=== PATIENT | female | born 1935 | race Caucasian/White ===

== ENCOUNTER 2024-05-19 10:53 | Outpatient (AMB) | payer MEDICARE, SELFPAY ==
--- NOTE | 2024-05-19 10:56 | A.OFFVIS_ITS ---
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 She describes her pains as sharp and severe in nature. She has had cortisone injections in the past which gave her minimal relief. She has not had a viscosupplementation injection. She has failed the last 3 months of conservative treatment which has included Tylenol, anti- inflammatory medicines and physical therapy exercises. At this point her bilateral knee pains are interfering with her activities of daily living and her ability to sleep well through the night. The patient wishes to hold off on total knee replacement surgery for as long as possible. Allergies lavander Allergy (Severe, Uncoded 05/19/24 11:11) Hives Medication List - Last Reviewed 05/19/24 by EMILIANA Malagon amlodipine 5 mg PO DAILY estradiol 1 mg PO DAILY hydrochlorothiazide 25 mg PO DAILY losartan 100 mg PO DAILY rosuvastatin 40 mg PO DAILY Physical Exam Vital Signs: BMI result Body Mass Index 34.5 Const Other: Well-nourished well-developed very friendly female awake alert and oriented x3 in no acute distress Extrem Other: Bilateral lower extremity examination shows good capillary refill, no skin lesions noted, normal sensation light touch Bilateral knee examination shows minimal effusions, palpable crepitus with range of motion, pain with range of motion, no instability Office Procedures AMB Joint Injection/Aspiration Joint Injection/Aspiration Primary Site: left knee Prep: site was prepped using aseptic technique Injected: 40 mg of, DepoMedrol and 1% plain lidocaine Procedure: The patient tolerated the procedure well Coding 07575 - Large joint Procedure code (CPT) selection complete AMB Joint Injection/Aspiration Joint Injection/Aspiration Primary Site: right knee Prep: site was prepped using aseptic technique Injected: 40 mg of, DepoMedrol and 1% plain lidocaine Procedure: The patient tolerated the procedure well Coding 31513 - Large joint Procedure code (CPT) selection complete Results Reviewed Results Reviewed: X-rays of the patient's right knee show moderate to severe joint space narrowing, subchondral sclerosis, no acute bony abnormalities Assessment & Plan Assessment & Plan (1) Osteoarthritis of left knee: Code(s): M17.12 - Unilateral primary osteoarthritis, left knee Category: Medical (2) Osteoarthritis of right knee: Code(s): M17.11 - Unilateral primary osteoarthritis, right knee Category: Medical Plan Ms. Campbell presents with progressively worsening bilateral knee pains due to osteoarthritis. I had a lengthy discussion with the patient regarding the treatment options. The risks and benefits of bilateral knee cortisone injections were discussed at length with the patient. The patient wished to proceed. She tolerated the injections well. I will also see whether or not the patient's insurance company will cover a viscosupplementation injection, such as Durolane, for both of her knees. I will see her back once the injections are available. Feel free to call me at any time should questions regarding her orthopedic management arise. I spent 22 minutes in reviewing the patient's records and imaging studies, seeing the patient and documenting in the medical record. Orders: Orders AMB Joint Injection/Aspiration Today M17.12 - Unilateral primary osteoarthritis, left knee XR knee RT 3V Today M25.561 - Pain in right knee AMB Joint Injection/Aspiration Today M17.11 - Unilateral primary osteoarthritis, right knee Coding Level of Care Code Est Pt Level 3 (34075) Complex EM visit Add On G2211 Diagnoses Osteoarthritis of left knee M17.12 Osteoarthritis of right knee M17.11 CPT Codes Coding - 39900 Large joint: 32317 - Large joint ([id number]) Coding - 93784 Large joint: 53887 - Large joint ([id number])
[2024-05-19 11:10] VITALS: BMI 34.5
== END 2024-05-19 11:32 | disposition home or self-care (01) ==
PROVIDERS: PCP Internal Medicine; Visit Provider Orthopaedic Surgery
DX: M17.0 Bilateral primary osteoarthritis of knee (principal)
CPT/HCPCS: 20610; 99213; G2211

== ENCOUNTER 2024-05-19 12:50 | Outpatient (REF) | payer MEDICARE, SELFPAY ==
--- NOTE | ~2024-05-19 | XR_ITS ---
EXAMINATION: XR KNEE 3 VIEWS RIGHT HISTORY: M25.561 - Pain in right knee COMPARISON: There are no prior studies available for comparison. FINDINGS: Three views of the left knee are submitted. Osseous mineralization is normal. There is no fracture or dislocation. There is severe osteoarthritis of the medial and lateral compartments, and moderate osteoarthritis of the patellofemoral compartment, with joint space narrowing and osteophyte formation. There is no joint effusion. There is calcification of the popliteal artery. XR/XR knee RT 3V IMPRESSION: Osteoarthritis of the right knee as described. Electronically signed by: Syed Keenan MD 05/20/2024 02:13 PM [facility]
== END 2024-05-19 12:51 | disposition home or self-care (01) ==
LOC: HO.HOSX 12:50
PROVIDERS: Visit Provider Orthopaedic Surgery
DX: M25.561 Pain in right knee (principal); M17.0 Bilateral primary osteoarthritis of knee
CPT/HCPCS: 20610; 73562; 99212; J1010; J2003

== ENCOUNTER 2024-08-18 11:27 | Outpatient (AMB) | payer MEDICARE, SELFPAY ==
[2024-08-18 11:42] VITALS: BMI 34.5
--- NOTE | 2024-08-18 11:42 | MHC.OFFVIS ---
Vital Signs 08/18/24 11:42 Height 5 ft 3.5 in Weight 198 lb BMI 34.5 Intake Visit Reasons: Bilateral knee pains Intake Note: Tiffani is an 89 year old female who presents with complaints of progressively worsening bilateral knee pains. She describes her pains as sharp in nature. Her pains have gotten worse over the last 6 months in spite of continued non operative treatments. She has failed the last 3 months of conservative treatment which has included Tylenol, anti-inflammatory medicines, physical therapy exercises and a home exercise program. She has had cortisone injections in the past which gave her minimal relief. She wishes to hold off on surgery if at all possible. At this point her bilateral knee pains are interfering with her activities of daily living and her ability to sleep well through the night. Allergies lavander Allergy (Severe, Uncoded 08/18/24 11:42) Hives Medication List - Last Reconciled 08/18/24 by Shayan Busch MD amlodipine 5 mg PO DAILY amoxicillin 2,000 mg (4 x 500 mg) PO ONCE estradiol 1 mg PO DAILY hydrochlorothiazide 25 mg PO DAILY losartan 100 mg PO DAILY rosuvastatin 40 mg PO DAILY Physical Exam Vital Signs: BMI result Body Mass Index 34.5 Const Other: Well-nourished well-developed very friendly female awake alert and oriented x3 in no acute distress Extrem Other: Bilateral lower extremity examination shows good capillary refill, no skin lesions noted, normal sensation light touch Bilateral knee examination shows minimal effusions, palpable crepitus with range of motion, pain with range of motion, no instability Office Procedures AMB Joint Injection/Aspiration Joint Injection/Aspiration Primary Site: right knee Prep: site was prepped using aseptic technique Injected: 20 mg of (Euflexxa viscosupplementation) and 1% plain lidocaine Procedure: The patient tolerated the procedure well Coding 18338 - Large joint Procedure code (CPT) selection complete AMB Joint Injection/Aspiration Joint Injection/Aspiration Primary Site: left knee Prep: site was prepped using aseptic technique Injected: 20 mg of (Euflexxa viscosupplementation) and 1% plain lidocaine Procedure: The patient tolerated the procedure well Coding 68148 - Large joint Procedure code (CPT) selection complete Results Reviewed Results Reviewed: X-rays of the patient's bilateral knees taken previously show joint space narrowing, subchondral sclerosis, no acute bony abnormalities Assessment & Plan Assessment & Plan (1) Osteoarthritis of left knee: Code(s): M17.12 - Unilateral primary osteoarthritis, left knee Category: Medical (2) Osteoarthritis of right knee: Code(s): M17.11 - Unilateral primary osteoarthritis, right knee Category: Medical Plan Ms. Campbell presents with bilateral knee pains due to osteoarthritis. The risks and benefits of a series of Euflexxa viscosupplementation injections were discussed at length with the patient. The patient wished to proceed. She tolerated the 1st set of injections well. She will continue with her home exercise program. She will follow up next week as scheduled. Feel free to call me at any time should questions regarding her orthopedic management arise. I spent 20 minutes in reviewing the patient's records and imaging studies, seeing the patient and documenting in the medical record. Orders: Orders AMB Joint Injection/Aspiration Today M17.11 - Unilateral primary osteoarthritis, right knee AMB Joint Injection/Aspiration Today M17.12 - Unilateral primary osteoarthritis, left knee Medications: New amoxicillin Take four caps (2,000 mg) one hour before any dental work. 2,000 mg (4 x 500 mg) PO ONCE 20 caps 3RF Coding Level of Care Code Est Pt Level 3 (55688) Complex EM visit Add On G2211 Diagnoses Osteoarthritis of left knee M17.12 Osteoarthritis of right knee M17.11 CPT Codes Coding - 10057 Large joint: 89979 - Large joint ([id number]) Coding - 48360 Large joint: 58510 - Large joint ([id number])
--- OUTSIDE RECORDS SUMMARY | 2024-08-18 13:55 | XMS_ITS | Clinical Summary ---
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 8 Active estradioL (ESTRACE) 1 mg tablet Take 1 mg by mouth daily. 4 Active fluticasone propionate (FLONASE) 50 mcg/actuation nasal spray 2 Sprays by Each Nare route daily for 360 days. 3 Active vitamin E, dl,tocopheryl acet, (vitamin E, dl, acetate,) 45 mg (100 unit) capsule Take 1 Capsule by mouth daily. 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 She understands all this and agrees with that plan as well. We can always follow this along with her nodule in the lung. Pulmonary nodules/lesions, multiple 10/21/2022 Overview (03/10/2024): Last Assessment & Plan: 89-year-old woman with pulmonary nodule in the right upper lobe that is actually stable but still somewhat suspicious. I did have a discussion with her and her son about the findings on the CAT scan showing this nodules again to be stable. We also talked about pulmonary nodules in general how their size, shape, and change/lack of knife changer time affect her level of suspicion for malignancy. I think this is of moderate suspicion based on all of this and the options I discussed with her were continued observation versus needle biopsy versus surgical wedge resection possible segmentectomy. Understanding the risks of this she wants to proceed with continued observation which I think is totally reasonable given her age and other comorbidities. Plan then from that standpoint will be for a CT chest in a year and follow-up with me after that. All questions were answered. Ectatic aorta (CMS/HCC V24) 08/07/2022 Overview (03/10/2024): CT 08/25 revealed 3.7 cm Prediabetes 01/12/2021 Overview (03/10/2024): A1c 6.0% 01/2021 Primary osteoarthritis of right knee 08/10/2020 CAD (coronary artery disease) 11/20/2017 Overview (03/10/2024): Comments: CXR 04/09/13 Aortic knob calcification Echo with nl EF, mild LVH 01/2020 HTN (hypertension) 11/28/2011 Anxiety 11/22/2011 Osteopenia 11/22/2011 Overview (03/10/2024): Bone density - 5/5/11 - right femoral neck T score -1.7 Bone density 04/22 - osteopenia Vitamin D deficiency 11/22/2011 Hyperlipidemia 11/20/2011 Overview (03/10/2024): Had been on pravastatin then on Lipitor Osteoarthritis 09/17/2011 Immunizations Name Administration Dates Next Due Tdap Tetanus diptheria acell ular pertussis (Boostrix; Adacel) 7yo and older 05/01/2022,03/21/2011 Surgical History Surgery Date Site/Laterality Comments HYSTERECTOMY PROCEDURE: HISTORICAL HYSTERECTOMY CATARACT EXTRACTION PROCEDURE: HISTORICAL CATARACT REMOVAL HIP ARTHROPLASTY PROCEDURE: HISTORICAL HIP REPLACEMENT OTHER SURGICAL HISTORY PROCEDURE: HISTORY OTHER; COMMENT: Abdomino-vaginal vesical neck suspension FOOT SURGERY PROCEDURE: UT UNLISTED PROCEDURE FOOT/TOES; COMMENT: hammartoe repair Medical History Medical History Date Comments Gout 11/22/2011 DX:Gout Anxiety 11/22/2011 DX:Anxiety Osteopenia 11/22/2011 DX:Osteopenia Hyperlipidemia 11/20/2011 DX:Hyperlipidemi a; COMMENT: Had been on pravastatin then on Lipitor HTN (hypertension) 11/28/2011 DX:HTN (hyper tension) CAD (coronary artery disease) 11/20/2017 DX :CAD (coronary artery disease); COMMENT: Comments: CXR 04/09/13 Aortic knob calcification Osteoarthritis 09/17/2011 DX:Osteoarthriti s History of Lyme disease 10/06/2010 DX:Histo ry of Lyme disease; COMMENT: IgG positive, IgM negative History of cataract 11/22/2011 DX:History o f cataract Family History Medical History Relation Name Comments Bladder Cancer Brother 1 Heart failure Brother 2 diabetes, No Known Problems Brother 3 No Known Problems Brother 4 Other: infectious disease Father Colon cancer Maternal Grandfather Liver cancer Maternal Grandmother Colon cancer Mother Other: in childbirth Paternal Grandmother Other: car accident Sister 1 Heart failure Sister 2 diabetes Breast cancer Sister 3 CHF Relation Name Status Comments Brother 1 Brother 2 Brother 3 Alive Brother 4 Alive Father Maternal Grandfather Maternal Grandmother Mother Paternal Grandfather Paternal Grandmother Sister 1 Sister 2 Sister 3 Alive Social History Tobacco Use Types Packs/Day Years Used Date Smoking Tobacco: Former Cigarettes 1.5 53 0 [birth year]/05/1954 - 05/05/2007 Smokeless Tobacco: Never Tobacco Cessation:Counseling Given: Not Answered Alcohol Use Standard Drinks/Week Comments Yes 0 (1 standard drink = 0.6 oz pur e alcohol) Comments No Sex and Gender Information Value Date Recorded Sex Assigned at Not on file Legal Sex Female 9:38 AM EST Gender Identity Not on file Sexual Orientation Not on file Obstetrics History Last Filed Vital Signs Vital Sign Reading Time Taken Comments Blood Pressure 136/78 04/14/2024 10:45 AM EST Pulse 84 01/26/2024 10:24 AM EDT Temperature - - Respiratory Rate 16 04/14/2024 10:45 AM EST Oxygen Saturation - - Inhaled Oxygen Concentration - - Weight 89.9 kg (198 lb 1.6 oz) 04/14/2024 10:45 AM EST Height 160 cm (5' 3 ) 01/26/2024 10:24 AM EDT Body Mass Index 35.09 01/26/2024 10:24 AM EDT Plan of Treatment Upcoming Encounters Date Type Department Care Team (Late st Contact Info) Description 10/13/2024 10:45 AM EDT [facility] [address] [place] [phone] Edison Escobedo PA [address] [place] [address] Health Maintenance Due Date Last Done Comments Pneumococcal Vaccine: 50+ Years (1 of 1 - PCV) 1987 Zoster Vaccines (1 of 2) 1987 RSV Immunization Adult Patients (1 - 1-dose 75+ series) 01/21/2012 Depression Screening 04/13/2022 Falls Risk Assessment 04/13/2022 Medicare Annual Wellness Visit 04/13/2022 Social Influencers of Health Screening 04/13/2022 COVID-19 Vaccine (4 - 2023-2 5 season) 2024 05/23/2021, 09/26/2020, 08/29/2020 Influenza Vaccine (Season Ended) 2025 Hypertension/CHF/CAD Annual BMP Blood Test 04/14/2025 04/14/2024, 04/16/2023 Cholesterol Screening (Lipid Panel) 04/16/2028 04/16/2023 DTaP,Tdap,and Td Vaccines (3 - Td or Tdap) 05/01/2032 05/01/2022, 03/21/2011 Osteoporosis Screening (Bone Density Screening) 08/22/2032 08/22/2022, 04/23/2019 HIB Vaccines Aged Out No longer eligi ble based on patient's age to complete this topic HPV Vaccines Aged Out No longer eligi ble based on patient's age to complete this topic Hepatitis A Vaccines Aged Out No long er eligible based on patient's age to complete this topic Hepatitis B Vaccines Aged Out No long er eligible based on patient's age to complete this topic IPV Vaccines Aged Out No longer eligi ble based on patient's age to complete this topic MMR Vaccines Aged Out No longer eligi ble based on patient's age to complete this topic Meningococcal ACWY Vaccine Aged Out N o longer eligible based on patient's age to complete this topic Meningococcal B Vaccine Aged Out No l onger eligible based on patient's age to complete this topic RSV Immunization Patients Under 20 months Aged Out No longer eligible b ased on patient's age to complete this topic Varicella Vaccines Aged Out No longer eligible based on patient's age to complete this topic Procedures Procedure Name Priority Date/Time Associated Diagnosis Comments COMPREHENSIVE METABOLIC PANEL Routine 04/14/2024 11:13 AM EST Mixed hyperlipidemia Primary hypertension LIPID PANEL Routine 04/16/2023 [facility] DEXA AXIAL SKELETON Routine 08/22/2022 7:38 AM EDT Encounter for screening for osteoporosis from Last 3 Months or Most Recently Relevant to Health Maintenance Results * (ABNORMAL) Comprehensive metabolic panel (04/14/2024 11:13 AM EST) Sodium 144 133 - 145 mmol/L LAB CHEMISTRY METHOD 04/14/2024 3:48 PM EST [facility] Potassium 4.2 3.5 - 5.5 mmol/L LAB CHEMISTRY METHOD 04/14/2024 3:48 PM EST [facility] Chloride 109 96 - 110 mmol/L LAB CHEMISTRY METHOD 04/14/2024 3:48 PM [facility] CO2 28 21 - 32 mmol/L LAB CHEMISTRY METHOD 04/14/2024 3:48 PM [facility] Anion Gap 7 3 - 11 LAB CHEMISTRY METHOD 04/14/2024 3:48 PM [facility] Glucose 104(H) 70 - 100 mg/dL LAB CHEMISTRY METHOD 04/14/2024 3:48 PM [facility] BUN 24 5 - 25 mg/dL LAB CHEMISTRY METHOD 04/14/2024 3:48 PM [facility] Creatinine 0.99 0.50 - 1.10 mg/dL LAB CHEMISTRY METHOD 04/14/2024 3:48 PM [facility] eGFR 55(L) >=60 mL/min/1. 73m2 LAB CHEMISTRY METHOD 04/14/2024 3:48 PM [facility] Comment:Calculation based on the??Chronic Kidney Disease Epidemiology Collaboration (CKD-EPI) equation refit??without adjustment for race. BUN/Creatinine Ratio 24.2 LAB CHEMISTRY METHOD 04/14/2024 3:48 PM [facility] Calcium 10.0 8.5 - 10.5 mg/dL LAB CHEMISTRY METHOD 04/14/2024 3:48 PM [facility] AST (SGOT) 12 10 - 42 unit/L LAB CHEMISTRY METHOD 04/14/2024 3:48 PM [facility] ALT (SGPT) 16 10 - 60 unit/L LAB CHEMISTRY METHOD 04/14/2024 3:48 PM [facility] Alkaline Phosphatase 48 42 - 121 unit/L LAB CHEMISTRY METHOD 04/14/2024 3:48 PM [facility] Total Protein 6.9 6.0 - 8.0 g/dL LAB CHEMISTRY METHOD 04/14/2024 3:48 PM [facility] Albumin 3.8 3.2 - 5.0 g/dL LAB CHEMISTRY METHOD 04/14/2024 3:48 PM EST [facility] Total Bilirubin 0.5 0.0 - 1.4 mg/dL LAB CHEMISTRY METHOD 04/14/2024 3:48 PM EST [facility] Blood Venous blood specimen / Unknown Venipuncture / Unknown 04/14/2024 11:13 AM EST 04/14/2024 11:13 AM EST Edison STACK LAB BLOOD ORDERABLES Fi nal Result [facility] [address] [place] [address], * (ABNORMAL) Lipid panel (04/16/2023) LDL/HDL Ratio 3 0 - 4 Triglycerides 126 0 - 150 mg/dL Cholesterol 217(A) 0 - 200 mg/dL HDL 75 >=40 mg/dL LDL Cholesterol 117(A) 0 - 100 mg/dL Blood Venous blood specimen / Unknown Historical Provider MD LAB BLOOD ORDERABLES Mary l Result * IS[facility]EL DEXA AXIAL SKELETON (08/22/2022 7:38 AM EDT) Anatomical Region Laterality Modality Mammography 08/21/2022 11:0 3 AM EDT Narrative 08/22/2022 7:38 AM EDT [facility] Diagnostic Imaging Department [address], [place] [id number] Patient: ??RIGOBERTO CAMPBELL ?/Age/Sex: 1935 - 87 - F Unit#: ??[id number] ? Location/Status: ??SPDIMAM/REG CLI ? Mnemonic/Ordering Site: ??MAMDEXAAX/SPMAM Ordering Physician: ??MAYI JESUS MD [facility] Dexa Axial Skeleton - 08/21/22 - 1140 HISTORY: ??The patient is an 87-year-old postmenopausal female with clinical concern for metabolic bone disease. ??The patient has undergone previous left hip replacement surgery. FINDINGS: ??Dual energy x-ray absorptiometry of the lumbar spine and right femur is performed. The mean bone mineral density at L2-4 (with the exclusion of L3) is 1.418 gm/cm2 which is 118% of that of young normals and 132% of that of age matched controls. This yields a T-score of 1.8 and a Z-score of 2.9 and there is therefore no evidence of osteoporosis or osteopenia here. The mean bone mineral density of the right femur is 0.957 gm/cm2 which is 95% of that of young normals and 121% of that of age matched controls. ??This yields a T-score of -0.4 and a Z-score of 1.3 and there is therefore no evidence of osteoporosis or osteopenia here. ??However, the T-score of the right femoral neck is -2.0 which is diagnostic of osteopenia. IMPRESSION: 1. Osteopenia. ??There has been a decrease of 1.1% in bone mineral density in the lumbar spine since the prior examination of 04/23/2019. ??There has been an increase of 6.9% in bone mineral density in the right femur. 2. FRAX analysis yields a 10-year probability of major osteoporotic fracture of 14.8% and a 10-year probability of hip fracture of 4.5%. Code 37831 Dictating Physician: ??MITA COOPER MD Electronically Signed by: ??MITA COOPER MD Dic Date/Time: ??08/22/2235 Sign date/Time: ??08/22/2238 Procedure Note Mita Cooepr MD - 06/06/2023 [facility] Diagnostic Imaging Department [address] [place] [id number] Patient: STEPHANIERIGOBERTO Madrigal D.O.B./Age/Sex: 1935 - 87 - F Unit#: [id number] Location/Status: SPDIMAM/REG CLI [facility] Ordering Physician: MAYI JESUS MD [facility] Dexa Axial Skeleton - 08/21/22 - 1141 HISTORY: The patient is an 87-year-old postmenopausal female withclinical concern for metabolic bone disease. The patient has undergone previousleft hip replacement surgery. FINDINGS: Dual energy x-ray absorptiometry of the lumbar spine and rightfemur is performed. The mean bone mineral density at L2-4 (with the exclusion ofL3) is 1.418 gm/cm2 which is 118% of that of young normals and 132% of that ofage matched controls. This yields a T-score of 1.8 and a Z-score of 2.9 andthere is therefore no evidence of osteoporosis or osteopenia here. The mean bone mineral density of the right femur is 0.957 gm/cm2 which is95% of that of young normals and 121% of that of age matched controls. Thisyields a T-score of -0.4 and a Z-score of 1.3 and there is therefore no evidenceof osteoporosis or osteopenia here. However, the T-score of the rightfemoral neck is -2.0 which is diagnostic of osteopenia. IMPRESSION: 1. Osteopenia. There has been a decrease of 1.1% in bone mineral densityin the lumbar spine since the prior examination of 04/23/2019. There hasbeen an increase of 6.9% in bone mineral density in the right femur. 2. FRAX analysis yields a 10-year probability of major osteoporoticfracture of 14.8% and a 10-year probability of hip fracture of 4.5%. Code 24099 Dictating Physician: MITA COOPER MD Electronically Signed by: MITA COOPER MD Dic Date/Time: 08/22/22 0735 Sign date/Time: 08/22/22 0738 Mayi Jesus MD IMG BI PROCEDURES Final Result from Last 3 Months or Most Recently Relevant to Health Maintenance Insurance [employer] Care Teams Web Development Manager Relationship Specialty Start Date End Date Maciel Pepe MD [address] [place] [address] [place] [address] PCP - General Internal Medicine 04/14/24
--- OUTSIDE RECORDS SUMMARY | 2024-08-18 13:55 | XMS_ITS | Clinical Summary ---
Author Organization [facility] Address [address] [place] [address] Care Team Providers Care Food Service Hotel Runner Name Role Phone Susan Ryan MD Primary Care Provider Allergies Active Allergy Reactions Criticality Noted Date Comments Lavender Oil 01/31/2017 Medications Medication Sig Dispensed Refills Start Date End Date Status estradiol (ESTRACE) 1 MG tablet 0 11/08/2016 Active LORazepam (ATIVAN) 0.5 MG tablet 0 12/14/2016 Active losartan-hydrochloro thiazide (HYZAAR) 50-12.5 MG per tablet 0 11/12/2016 Active simvastatin (ZOCOR) tablet 40 mg 0 12/14/2016 Active amoxicillin (AMOXIL) 500 MG capsule TAKE 4 CAPSULES BY MOUTH 1 HOUR PRIOR TO DENTAL APPOINTMENT. 20 capsule 3 03/23/2019 Active Active Problems Problem Noted Date Diagnosed Date Degenerative arthritis of knee, bilateral 2016 Bilateral knee effusions 01/31/2017 Chronic pain of both knees 01/31/2017 Social History Tobacco Use Types Packs/Day Years Used Date Smoking Tobacco: Never Assessed Sex and Gender Information Value Date Recorded Sex Assigned at Not on file Gender Identity Not on file Sexual Orientation Not on file Last Filed Vital Signs Vital Sign Reading Time Taken Comments Blood Pressure - - Pulse - - Temperature - - Respiratory Rate - - Oxygen Saturation - - Inhaled Oxygen Concentration - - Weight 82.6 kg (182 lb) 01/31/2017 10:36 AM EDT Height 167.6 cm (5' 6 ) 01/31/2017 10:36 AM EDT Body Mass Index 29.38 01/31/2017 10:36 AM EDT Plan of Treatment Health Maintenance Due Date Last Done Comments COVID-19 Vaccine (#1) 1935 Depression Screening 1949 Preventative Health Evaluation 1955 DTap / Tdap / Td (1 - Tdap) 01/21/1956 Shingrix-Zoster Vaccine (1 of 2) 1987 Fall Risk Assessment 2002 Osteoporosis Screening (DEXA Scan) 2002 Pneumococcal Vaccine (1 of 1 - PCV) 2002 RSV Adult > 60+ Yrs or Pregn ant (1 - 1-dose 75+ series) 01/21/2012 Influenza Vaccine (#1) 2024 Hepatitis B Vaccines Aged Out No long er eligible based on patient's age to complete this topic RSV Ped < 20 months Aged Out No longe r eligible based on patient's age to complete this topic Care Teams Food Service Hotel Runner Relationship Specialty Start Date End Date Susan Ryan MD [address] [place] [address] PCP - General Family Medicine 12/31/16
== END 2024-08-18 12:08 | disposition home or self-care (01) ==
LOC: HO.HOS 11:27
PROVIDERS: Visit Provider Orthopaedic Surgery
DX: M17.0 Bilateral primary osteoarthritis of knee (principal)
CPT/HCPCS: 20610; 99213

== ENCOUNTER → 2024-08-18 11:27 | Outpatient (BNVA) | payer MEDICARE, SELFPAY | PROVIDERS: Visit Provider Orthopaedic Surgery | DX: M17.0 Bilateral primary osteoarthritis of knee (principal) | CPT/HCPCS: 20610; 99212; J2003; J7323 ==

== ENCOUNTER 2024-08-25 10:58 | Outpatient (AMB) | payer MEDICARE, SELFPAY ==
--- NOTE | 2024-08-25 11:07 | MHC.OFFVIS ---
Vital Signs 08/25/24 11:08 Height 5 ft 3.5 in Weight 198 lb BMI 34.5 Intake Visit Reasons: Inj - Bilateral knee Euflexxa #2 Intake Note: Tiffani is an 89 year old female who presents today for their second dose of bilateral knee Euflexxa injections. Patient states she got a little relief from the 1st set of injections. She continues with her home exercise program. Allergies lavander Allergy (Severe, Uncoded 08/25/24 11:08) Hives Medication List - Last Reconciled 08/25/24 by Shayan Busch MD amlodipine 5 mg PO DAILY estradiol 1 mg PO DAILY hydrochlorothiazide 25 mg PO DAILY losartan 100 mg PO DAILY rosuvastatin 40 mg PO DAILY Physical Exam Vital Signs: BMI result Body Mass Index 34.5 Extrem Other: Bilateral knee examination shows minimal effusions, palpable crepitus with range of motion, pain with range of motion, no instability Office Procedures AMB Joint Injection/Aspiration Joint Injection/Aspiration Primary Site: left knee Prep: site was prepped using aseptic technique Injected: 20 mg of (Euflexxa viscosupplementation) and 1% plain lidocaine Procedure: The patient tolerated the procedure well Coding 28102 - Large joint Procedure code (CPT) selection complete AMB Joint Injection/Aspiration Joint Injection/Aspiration Primary Site: right knee Prep: site was prepped using aseptic technique Injected: 20 mg of (Euflexxa viscosupplementation) and 1% plain lidocaine Procedure: The patient tolerated the procedure well Coding 85158 - Large joint Procedure code (CPT) selection complete Results Reviewed Results Reviewed: X-rays of the patient's bilateral knee show joint space narrowing, subchondral sclerosis, no acute bony abnormalities Assessment & Plan Assessment & Plan (1) Osteoarthritis of left knee: Code(s): M17.12 - Unilateral primary osteoarthritis, left knee Category: Medical (2) Osteoarthritis of right knee: Code(s): M17.11 - Unilateral primary osteoarthritis, right knee Category: Medical Plan Ms. Campbell presents with bilateral knee pains due to osteoarthritis. The risks and benefits of a 2nd set of Euflexxa injections were discussed at length with the patient. The patient wished to proceed. She tolerated the injections well. She will continue with her home exercise program. She will follow up next week as scheduled. Orders: Orders AMB Joint Injection/Aspiration Today M17.12 - Unilateral primary osteoarthritis, left knee AMB Joint Injection/Aspiration Today M17.11 - Unilateral primary osteoarthritis, right knee Medications: New amoxicillin Take four caps (2,000 mg) one hour before any dental work. 2,000 mg (4 x 500 mg) PO ONCE 20 caps 3RF Discontinued amoxicillin Take four caps (2,000 mg) one hour before any dental work. Discontinued Reason: Doctor's Order 2,000 mg (4 x 500 mg) PO ONCE 20 caps 3RF Coding Level of Care Code Procedure Only Diagnoses Osteoarthritis of left knee M17.12 Osteoarthritis of right knee M17.11 CPT Codes Coding - 60035 Large joint: 28785 - Large joint ([id number]) Coding - 66742 Large joint: 32076 - Large joint ([id number])
[2024-08-25 11:08] VITALS: BMI 34.5
--- OUTSIDE RECORDS SUMMARY | 2024-08-25 13:12 | XMS_ITS | Clinical Summary ---
Author Organization [facility] Address [address] [place] [phone] Phone Care Team Providers Care Wirer Name Role Phone Maciel Pepe MD Primary Care Provider [phone] Allergies Active Allergy Reactions Criticality Noted Date [...] how their size, shape, and change/lack of policy change clerk time affect her level of suspicion for [...] Abdomino-vaginal vesical neck suspension FOOT SURGERY PROCEDURE: AR UNLISTED PROCEDURE FOOT/TOES; COMMENT: hammartoe repair Medical [...] AM EDT [facility] [address] [place] [address] Edison Escobedo PA [address] [place] [address] Health Maintenance Due Date Last Done Comments [...] hyperlipidemia Primary hypertension LIPID PANEL Routine 04/16/2023 [facility] DEXA AXIAL SKELETON Routine 08/22/2022 7:38 [...] mmol/L LAB CHEMISTRY METHOD 04/14/2024 3:[address] [facility] CO2 28 21 - 32 mmol/L LAB CHEMISTRY METHOD 04/14/2024 3:[address] [facility] Anion Gap 7 3 - 11 LAB CHEMISTRY METHOD 04/14/2024 3:[address] [facility] Glucose 104(H) 70 - 100 mg/dL LAB CHEMISTRY METHOD 04/14/2024 3:[address] [facility] BUN 24 5 - 25 mg/dL LAB CHEMISTRY METHOD 04/14/2024 3:[address] [facility] Creatinine 0.99 0.50 - 1.10 mg/dL LAB CHEMISTRY METHOD 04/14/2024 3:[address] [facility] eGFR 55(L) >=60 mL/min/1. 73m2 LAB CHEMISTRY METHOD 04/14/2024 3:[address] [facility] Comment:Calculation based on the??Chronic Kidney Disease Epidemiology Collaboration (CKD-EPI) equation refit??without adjustment for race. BUN/Creatinine Ratio 24.2 LAB CHEMISTRY METHOD 04/14/2024 3:[address] [facility] Calcium 10.0 8.5 - 10.5 mg/dL LAB CHEMISTRY METHOD 04/14/2024 3:[address] [facility] AST (SGOT) 12 10 - 42 unit/L LAB CHEMISTRY METHOD 04/14/2024 3:[address] [facility] ALT (SGPT) 16 10 - 60 unit/L LAB CHEMISTRY METHOD 04/14/2024 3:[address] [facility] Alkaline Phosphatase 48 42 - 121 unit/L LAB CHEMISTRY METHOD 04/14/2024 3:[address] [facility] Total Protein 6.9 6.0 - 8.0 g/dL LAB CHEMISTRY METHOD 04/14/2024 3:[address] [facility] Albumin 3.8 3.2 - 5.0 [...] [facility] [address] [place] [address], * (ABNORMAL) Lipid panel (04/16/2023) LDL/HDL Ratio [...] AM EDT Narrative 08/22/2022 7:38 AM EDT [facility] Diagnostic Imaging Department [address], [place] [id number] Patient: ??RIGOBERTO CAMPBELL ?/Age/Sex: 1935 - 87 - F Unit#: ??[id number] ? Location/Status: ??SPDIMAM/REG CLI ? Mnemonic/Ordering Site: ??MAMDEXAAX/SPMAM Ordering Physician: ??MAYI JESUS MD [facility] Dexa Axial Skeleton - 08/21/22 - [...] probability of hip fracture of 4.5%. Code 91271 Dictating Physician: ??MITA COOPER MD Electronically Signed by: ??MITA COOPER MD Dic Date/Time: ??08/22/2235 Sign date/Time: ??08/22/2238 Procedure Note Mita Cooper MD - 06/06/2023 [facility] Diagnostic Imaging Department [address] [place] [id number] Patient: STEPHANIERIGOBERTO Madrigal D.O.B./Age/Sex: 1935 - 87 - F Unit#: [id number] Location/Status: SPDIMAM/REG CLI [facility] Ordering Physician: MAYI JESUS MD Isabel [...] probability of hip fracture of 4.5%. Code 38746 Dictating Physician: MITA COOPER MD Electronically Signed by: MITA COOPER MD Dic Date/Time: 08/22/22 0735 Sign date/Time: 08/22/22 0738 Mayi Jesus MD IMG BI PROCEDURES Final Result from Last 3 Months or Most Recently Relevant to Health Maintenance Insurance [employer] Care Teams Wirer Relationship Specialty Start Date End Date Maciel Pepe MD [address] [place] [address] [place] [address] PCP - General Internal Medicine 04/14/24
--- OUTSIDE RECORDS SUMMARY | 2024-08-25 13:12 | XMS_ITS | Clinical Summary ---
Author Organization [facility] Address [address] [place] [address] Care Team Providers Care Inspector Open Die Name Role Phone Susan yRan MD Primary Care Provider Allergies Active Allergy [...] age to complete this topic Care Teams Inspector Open Die Relationship Specialty Start Date End Date Susan Ryan MD [address] [place] [address] PCP - General Family Medicine 12/31/16
== END 2024-08-25 11:28 | disposition home or self-care (01) ==
LOC: HO.HOS 10:59
PROVIDERS: Visit Provider Orthopaedic Surgery
DX: M17.0 Bilateral primary osteoarthritis of knee (principal)
CPT/HCPCS: 20610

== ENCOUNTER → 2024-08-25 10:58 | Outpatient (BNVA) | payer MEDICARE, SELFPAY | PROVIDERS: Visit Provider Orthopaedic Surgery | DX: M17.0 Bilateral primary osteoarthritis of knee (principal) | CPT/HCPCS: 20610; J2003; J7323 ==

== ENCOUNTER 2024-09-01 10:56 | Outpatient (AMB) | payer MEDICARE, SELFPAY ==
--- NOTE | 2024-09-01 11:10 | MHC.OFFVIS ---
Intake Visit Reasons: Inj - Bilateral knee Euflexxa #3 Intake Note: Tiffani is an 89 year old female who presents today for Bilateral Knee Euflexxa Injections #3. She states that she has gotten mild relief from the 1st 2 injections. She continues with her home exercise program. Allergies lavander Allergy (Severe, Uncoded 08/25/24 11:08) Hives Medication List - Last Reconciled 09/01/24 by Shayan Busch MD amlodipine 5 mg PO DAILY amoxicillin 2,000 mg (4 x 500 mg) PO ONCE estradiol 1 mg PO DAILY hydrochlorothiazide 25 mg PO DAILY losartan 100 mg PO DAILY rosuvastatin 40 mg PO DAILY Physical Exam Extrem Other: Bilateral knee examination shows minimal effusions, palpable crepitus with range of motion, pain with range of motion, no instability Office Procedures AMB Joint Injection/Aspiration Joint Injection/Aspiration Primary Site: left knee Prep: site was prepped using aseptic technique Injected: 20 mg of (Euflexxa viscosupplementation) and 1% plain lidocaine Procedure: The patient tolerated the procedure well Coding 73895 - Large joint Procedure code (CPT) selection complete AMB Joint Injection/Aspiration Joint Injection/Aspiration Primary Site: right knee Prep: site was prepped using aseptic technique Injected: 20 mg of (Euflexxa viscosupplementation) and 1% plain lidocaine Procedure: The patient tolerated the procedure well Coding 78481 - Large joint Procedure code (CPT) selection complete Results Reviewed Results Reviewed: X-rays of the patient's bilateral knees taken previously show joint space narrowing, subchondral sclerosis, no acute bony abnormalities Assessment & Plan Assessment & Plan (1) Osteoarthritis of left knee: Code(s): M17.12 - Unilateral primary osteoarthritis, left knee Category: Medical (2) Osteoarthritis of right knee: Code(s): M17.11 - Unilateral primary osteoarthritis, right knee Category: Medical Plan Ms. Campbell presents with bilateral knee pains due to osteoarthritis. The risks and benefits of bilateral knee Euflexxa injections were discussed at length with the patient. The patient tolerated the injections well. She will continue with her home exercise program. She will contact me prior to her follow-up appointment in 3 months should any questions or concerns arise. Feel free to call me at any time should questions regarding her orthopedic management arise. Orders: Orders AMB Joint Injection/Aspiration Today M17.12 - Unilateral primary osteoarthritis, left knee AMB Joint Injection/Aspiration Today M17.11 - Unilateral primary osteoarthritis, right knee Coding Level of Care Code Procedure Only Diagnoses Osteoarthritis of left knee M17.12 Osteoarthritis of right knee M17.11 CPT Codes Coding - 14294 Large joint: 03224 - Large joint ([id number]) Coding - 39759 Large joint: 87019 - Large joint ([id number])
--- OUTSIDE RECORDS SUMMARY | 2024-09-01 12:28 | XMS_ITS | Clinical Summary ---
Author Organization [facility] Address [address] [place] [address] Care Team Providers Care Wheel Alignment Technician Name Role Phone Susan Ryan MD Primary [...] age to complete this topic Care Teams Wheel Alignment Technician Relationship Specialty Start Date End Date Susan Ryan MD [address] [place] [address] PCP - General Family Medicine 12/31/16
--- OUTSIDE RECORDS SUMMARY | 2024-09-01 12:28 | XMS_ITS | Clinical Summary ---
Author Organization [facility] Address [address] [place] [phone] Phone Care Team Providers Care Commercial Real Estate Attorney Name Role Phone Maciel Pepe MD Primary Care Provider [phone] Allergies Active Allergy Reactions Criticality Noted Date Comments Lavender Oil 01/12/2020 Swollen eyes Medications cholecalciferol (VITAMIN D-3) 25 mcg (1,000 unit) tablet Take 1,000 Units by mouth daily. 05/22/19 18 Active estradioL (ESTRACE) 1 mg tablet Take 1 mg by mouth daily. 05/07/19 14 Active fluticasone propionate (FLONASE) 50 mcg/actuation nasal spray 2 Sprays by Each Nare route daily for 360 days. 04/16/20 23 Active vitamin E, dl,tocopheryl acet, (vitamin E, dl, acetate,) 45 mg (100 unit) capsule Take 1 Capsule by mouth daily. Active hydroCHLOROthiazid e (HYDRODIURIL) 25 mg tablet Take 1 tablet by mouth once daily 90 tablet 1 06/01/19 25 Active losartan (COZAAR) 100 mg tablet Take 1 tablet by mouth once daily 90 tablet 1 06/09/19 25 Active rosuvastatin (CRESTOR) 40 mg tabletIndications: Mixed hyperlipidemia Take 1 tablet by mouth once daily 90 tablet 1 07/06/19 25 Active amLODIPine (NORVASC) 5 mg tablet Take 1 tablet by mouth once daily 30 tablet 2 08/31/19 25 Active amLODIPine (NORVASC) 5 mg tablet Take 1 tablet by mouth once daily 03/03/20 025 Discontinued Active Problems Problem Noted Date Diagnosed Date [...] how their size, shape, and change/lack of microsoft exchange administrator time affect her level of suspicion for [...] Osteopenia 11/22/2011 Overview (03/10/2024): Bone density - 09/06/10 - right femoral neck T score -1.7 Bone density 04/22 - osteopenia Vitamin D deficiency 11/22/2011 Hyperlipidemia 11/20/2011 Overview (03/10/2024): Had been on pravastatin then on Lipitor Osteoarthritis 09/17/2011 Encounters Date Type Department Care Team Description 08/26/2024 Telephone [facility]s - [facility] [address] [place] [address] Maciel Pepe MD Referral from Last 3 Months Immunizations Name Administration Dates Next Due Tdap Tetanus diptheria acell ular pertussis (Boostrix; Adacel) 7yo and older 05/01/2022,03/21/2011 Surgical History Surgery Date Site/Laterality Comments HYSTERECTOMY PROCEDURE: HISTORICAL HYSTERECTOMY CATARACT EXTRACTION PROCEDURE: HISTORICAL CATARACT REMOVAL HIP ARTHROPLASTY PROCEDURE: HISTORICAL HIP REPLACEMENT OTHER SURGICAL HISTORY PROCEDURE: HISTORY OTHER; COMMENT: Abdomino-vaginal vesical neck suspension FOOT SURGERY PROCEDURE: IN UNLISTED PROCEDURE FOOT/TOES; COMMENT: hammartoe repair Medical [...] AM EDT Office Visit Internal Medicine - [facility] [address] [place] [address] Edison Escobedo PA [address] [place] [address] Health Maintenance Due Date Last Done Comments [...] hyperlipidemia Primary hypertension LIPID PANEL Routine 04/16/2023 [facility] DEXA AXIAL SKELETON Routine 08/22/2022 7:38 AM EDT Encounter for screening for osteoporosis from Last 3 Months or Most Recently Relevant to Health Maintenance Results * (ABNORMAL) Comprehensive metabolic panel (04/14/2024 11:13 AM EST) Sodium 144 133 - 145 mmol/L LAB CHEMISTRY METHOD 04/14/2024 3:48 PM [facility] Potassium 4.2 3.5 - 5.5 mmol/L LAB CHEMISTRY METHOD 04/14/2024 3:48 PM [facility] Chloride 109 96 - 110 mmol/L LAB CHEMISTRY METHOD 04/14/2024 3:48 PM [facility] CO2 28 21 - 32 mmol/L LAB CHEMISTRY METHOD 04/14/2024 3:48 PM [facility] Anion Gap 7 3 - 11 LAB CHEMISTRY METHOD 04/14/2024 3:48 PM [facility] Glucose 104(H) 70 - 100 mg/dL LAB CHEMISTRY METHOD 04/14/2024 3:48 PM [facility] BUN 24 5 - 25 mg/dL LAB CHEMISTRY METHOD 04/14/2024 3:48 PM [facility] Creatinine 0.99 0.50 - 1.10 mg/dL LAB CHEMISTRY METHOD 04/14/2024 3:48 PM [facility] eGFR 55(L) >=60 mL/min/1. 73m2 LAB CHEMISTRY METHOD 04/14/2024 3:48 PM [facility] Comment:Calculation based on the??Chronic Kidney Disease Epidemiology Collaboration (CKD-EPI) equation refit??without adjustment for race. BUN/Creatinine Ratio 24.2 LAB CHEMISTRY METHOD 04/14/2024 3:48 PM [facility] Calcium 10.0 8.5 - 10.5 mg/dL LAB CHEMISTRY METHOD 04/14/2024 3:48 PM [facility] AST (SGOT) 12 10 - 42 unit/L LAB CHEMISTRY METHOD 04/14/2024 3:48 PM [facility] ALT (SGPT) 16 10 - 60 unit/L LAB CHEMISTRY METHOD 04/14/2024 3:48 PM [facility] Alkaline Phosphatase 48 42 - 121 unit/L LAB CHEMISTRY METHOD 04/14/2024 3:48 PM EST [facility] Total Protein 6.9 6.0 - 8.0 g/dL LAB CHEMISTRY METHOD 04/14/2024 3:48 PM EST [facility] Albumin 3.8 3.2 - 5.0 g/dL LAB CHEMISTRY METHOD 04/14/2024 3:48 PM EST [facility] Total Bilirubin 0.5 0.0 - 1.4 mg/dL LAB CHEMISTRY METHOD 04/14/2024 3:48 PM EST [facility] Blood Venous blood specimen / Unknown Venipuncture / Unknown 04/14/2024 11:13 AM EST 04/14/2024 11:13 AM EST Edison STACK LAB BLOOD ORDERABLES Fi nal Result [facility] [address] [place] [address], * (ABNORMAL) Lipid panel (04/16/2023) LDL/HDL Ratio 3 0 - 4 Triglycerides 126 0 - 150 mg/dL Cholesterol 217(A) 0 - 200 mg/dL HDL 75 >=40 mg/dL LDL Cholesterol 117(A) 0 - 100 mg/dL Blood Venous blood specimen / Unknown Historical Provider LAB BLOOD ORDERABLES Mary l Result * [facility] DEXA AXIAL SKELETON (08/22/2022 7:38 AM EDT) Anatomical Region Laterality Modality Mammography 08/21/2022 11:0 3 AM EDT Narrative 08/22/2022 7:38 AM EDT [facility] Diagnostic Imaging Department [address] [place] [address] Patient: ??RIGOBERTO CAMPBELL ?/Age/Sex: 1935 - 87 - F Unit#: ??[id number] ? Location/Status: ??SPDIMAM/REG CLI ? Mnemonic/Ordering Site: ??MAMDEXAAX/SPMAM Ordering Physician: ??MAYI JESUS MD [facility] Dexa Axial Skeleton - 08/21/22 114 HISTORY: ??The patient is an 87-year-old postmenopausal [...] probability of hip fracture of 4.5%. Code 94738 Dictating Physician: ??MITA COOPER MD Electronically Signed by: ??MITA COOPER MD Dic Date/Time: ??08/22/22 0735 Sign date/Time: ??08/22/22 0738 Procedure Note Mita Cooper MD - 06/06/2023 [facility] Diagnostic Imaging Department [address] [place] [address] Patient: STEPHANIE,RIGOBERTO Madrigal D.O.B./Age/Sex: 1935 - 87 - F Unit#: [id number] Location/Status: [facility] Mnemonic/Ordering Site: [facility] Ordering Physician: MAYI JESUS MD [facility] Dexa Axial Skeleton - 08/21/22 - 1141 [...] probability of hip fracture of 4.5%. Code 40695 Dictating Physician: MITA COOPER MD Electronically Signed by: MITA COOPER MD Dic Date/Time: 08/22/22 0735 Sign date/Time: 08/22/22 0738 Mayi Jesus MD IM BI PROCEDURES Final Result from Last 3 Months or Most Recently Relevant to Health Maintenance Insurance [employer] Care Teams Commercial Real Estate Attorney Relationship Specialty Start Date End Date Maciel Pepe MD [address] [place] [id number] PCP - General Internal Medicine 04/14/24
== END 2024-09-01 11:43 | disposition home or self-care (01) ==
LOC: HO.HOS 10:56
PROVIDERS: Visit Provider Orthopaedic Surgery
DX: M17.0 Bilateral primary osteoarthritis of knee (principal)
CPT/HCPCS: 20610

== ENCOUNTER → 2024-09-01 10:56 | Outpatient (BNVA) | payer MEDICARE, SELFPAY | PROVIDERS: Visit Provider Orthopaedic Surgery | DX: M17.0 Bilateral primary osteoarthritis of knee (principal) | CPT/HCPCS: 20610; J2003; J7323 ==

== ENCOUNTER 2024-12-01 11:12 | Outpatient (AMB) | payer MEDICARE, SELFPAY ==
--- NOTE | 2024-12-01 11:14 | A.OFFVIS_ITS ---
Vital Signs 12/01/24 11:18 Height 5 ft 3 in Weight 198 lb BMI 35.1 Intake Visit Reasons: OV-B/L knee Euflexxa f/u last inj 09/01/24 Intake Note: Tiffani is an 89 year old female who presents with complaints of bilateral knee pains. The patient did have bilateral knee Euflexxa injections given into her knees earlier this year. She got minimal relief from the injections. She has had cortisone injections in the past which gave her fairly good relief. She wishes to hold off on total knee replacement surgery if possible. She has taken Tylenol and anti-inflammatory medicines which gave her minimal relief. Allergies lavander Allergy (Severe, Uncoded 08/25/24 11:08) Hives Medication List - Last Reviewed 12/01/24 by aNzia Guerrero amlodipine 5 mg PO DAILY amoxicillin 2,000 mg (4 x 500 mg) PO ONCE estradiol 1 mg PO DAILY hydrochlorothiazide 25 mg PO DAILY losartan 100 mg PO DAILY rosuvastatin 40 mg PO DAILY Physical Exam Vital Signs: BMI result Body Mass Index 35.1 Const Other: Well-nourished well-developed very friendly female awake alert and oriented x3 in no acute distress Extrem Other: Bilateral lower extremity examination shows good capillary refill, no skin lesions noted, normal sensation light touch Bilateral knee examination shows minimal effusions, palpable crepitus with range of motion, pain with range of motion, no instability Office Procedures AMB Joint Injection/Aspiration Joint Injection/Aspiration Primary Site: left knee Prep: site was prepped using aseptic technique Injected: 40 mg of, DepoMedrol and 1% plain lidocaine Procedure: The patient tolerated the procedure well Coding 52458 - Large joint Procedure code (CPT) selection complete AMB Joint Injection/Aspiration Joint Injection/Aspiration Primary Site: right knee Prep: site was prepped using aseptic technique Injected: 40 mg of, DepoMedrol and 1% plain lidocaine Procedure: The patient tolerated the procedure well Coding 47295 - Large joint Procedure code (CPT) selection complete Results Reviewed Results Reviewed: X-rays of the patient's bilateral knees taken previously show joint space narrowing, subchondral sclerosis, no acute bony abnormalities Assessment & Plan Assessment & Plan (1) Osteoarthritis of left knee: Code(s): M17.12 - Unilateral primary osteoarthritis, left knee Category: Medical (2) Osteoarthritis of right knee: Code(s): M17.11 - Unilateral primary osteoarthritis, right knee Category: Medical Plan Ms. Campbell presents with bilateral knee pains due to degenerative joint disease. I had a lengthy discussion with the patient regarding the treatment options. The risks and benefits of bilateral knee cortisone injections were di scussed at length with the patient. The patient wished to proceed. She tolerated the injections well. She will continue with her home exercise program. She will contact me prior to her follow-up appointment in 3 months should any questions or concerns arise. Feel free to call me at any time should questions regarding her orthopedic management arise. I spent 21 minutes in reviewing the patient's records and imaging studies, seeing the patient and documenting in the medical record. Orders: Orders AMB Joint Injection/Aspiration Today M17.11 - Unilateral primary osteoarthritis, right knee AMB Joint Injection/Aspiration Today M17.12 - Unilateral primary o steoarthritis, left knee Coding Level of Care Code Est Pt Level 3 (43746) Complex EM visit Add On G2211 Diagnoses Osteoarthritis of left knee M17.12 Osteoarthritis of right knee M17.11 CPT Codes Coding - 41596 Large joint: 71343 - Large joint ([id number]) Coding - 96962 Large joint: 14281 - Large joint ([id number])
[2024-12-01 11:18] VITALS: BMI 35.1
--- OUTSIDE RECORDS SUMMARY | 2024-12-01 12:16 | XMS_ITS | Clinical Summary ---
Author Organization [facility] Address [address] [place] [phone] Phone Care Team Providers Care Dump Grader Name Role Phone Maciel Pepe MD Primary Care Provider [phone] Allergies Active Allergy Reactions Criticality Noted Date Comments Lavender Oil 01/12/2020 Swollen eyes Pollen Extracts 10/13/2024 Medications cholecalciferol (VITAMIN D-3) 25 mcg (1,000 [...] Take 1 Capsule by mouth daily. Active rosuvastatin (CRESTOR) 40 mg tabletIndications:M ixed hyperlipidemia Take 1 tablet by mouth once daily 90 tablet 1 5 Active amLODIPine (NORVASC) 5 mg tablet Take 1 tablet (5 mg total) by mouth 1 (one) time each day. 90 tablet 1 5 Active oxyBUTYnin (DITROPAN) 5 mg tablet Take 1 tablet (5 mg total) by mouth 1 (one) time each day. 30 each 1 5 04/11/20 25 Active acetaminophen (Tylenol 8 Hour) 650 mg 8 hr tablet Take 2 tablets (1,300 mg total) by mouth every 8 (eight) hours if needed for mild pain. Do not crush, chew, or split. 90 tablet 1 5 04/11/20 25 Active hydroCHLOROthiazide (HYDRODIURIL) 25 mg tablet Take 1 tablet (25 mg total) by mouth 1 (one) time each day. 90 tablet 1 5 Active losartan (COZAAR) 100 mg tablet Take 1 tablet (100 mg total) by mouth 1 (one) time each day. 90 tablet 1 5 Active Active Problems [...] how their size, shape, and change/lack of change control analyst time affect her level of suspicion for [...] Encounters Date Type Department Care Team Description 10/13/2024 10:45 AM EDT Office Visit [facility] [address] [place] [phone] dEison Escobedo PA Mixed hyperlipidemia (Primary Dx); Primary hypertension 09/15/2024 1:49 PM EDT - 09/15/2024 11:59 PM EDT [facility] [address] [place] [phone] Encounter for screening mammogram for malignant neoplasm of breast Discharge Disposition: Home or Self Care 09/15/2024 1:47 PM EDT - 09/15/2024 11:59 PM EDT Hospital Encounter [facility] Bone Density [address] [place] [phone] Other specified disorders of bone density and structure, multiple sites Discharge Disposition: Home or Self Care from Last 3 Months Immunizations Name Administration Dates Next Due Tdap Tetanus diptheria acell ular pertussis (Boostrix; Adacel) 7yo and older 05/01/2022,03/21/2011 Surgical History Surgery Date Site/Laterality Comments HYSTERECTOMY PROCEDURE: HISTORICAL HYSTERECTOMY CATARACT EXTRACTION PROCEDURE: HISTORICAL CATARACT REMOVAL HIP ARTHROPLASTY PROCEDURE: HISTORICAL HIP REPLACEMENT OTHER SURGICAL HISTORY PROCEDURE: HISTORY OTHER; COMMENT: Abdomino-vaginal vesical neck suspension FOOT SURGERY PROCEDURE: MT UNLISTED PROCEDURE FOOT/TOES; COMMENT: hammartoe repair Medical [...] Information Value Date Recorded Sex Assigned at Female 09/09/2024 9:52 AM EDT Legal Sex Female 9:38 AM EST Gender Identity Female 09/09/2024 9:52 AM EDT Sexual Orientation Straight 09/09/2024 9: 57 AM EDT Obstetrics History Para Term AB IAB SAB Ectopic Multiple Livin g Live Births 4 Last Filed Vital Signs Vital Sign Reading Time Taken Comments Blood Pressure 132/70 10/13/2024 10:55 AM EDT Pulse 62 10/13/2024 10:55 AM EDT Temperature - - Respiratory Rate 16 10/13/2024 10:55 AM EDT Oxygen Saturation - - Inhaled Oxygen Concentration - - Weight 89.4 kg (197 lb) 10/13/2024 10:55 AM EDT Height 160 cm (5' 3 ) 09/15/2024 2:21 PM EDT Body Mass Index 34.9 09/15/2024 2:21 PM EDT Plan of Treatment Upcoming Encounters Date Type Department Care Team (Late st Contact Info) Description 01/06/2025 9:30 AM EDT Appointment [facility] CT Scan [address] [place] [phone] 04/14/2025 11:00 AM EST Office Visit [facility] [address] [place] [phone] Edison Escobedo PA [address] [place] [address] Health Maintenance Due Date Last Done Comments Pneumococcal Vaccine: 50+ Years (1 of 1 - PCV) 1987 Zoster Vaccines (1 of 2) 1987 RSV Immunization Adult Patients (1 - 1-dose 75+ series) 01/21/2012 Falls Risk Assessment 04/13/2022 Medicare Annual Wellness Visit 04/13/2022 Social Influencers of Health Screening 04/13/2022 COVID-19 Vaccine (4 - 2023-2 5 season) 2024 05/23/2021, 09/26/2020, 08/29/2020 Depression Screening 05/05/2024 Influenza Vaccine (#1) 2025 Hypertension/CHF/CAD Annual BMP Blood Test 10/13/2025 10/13/2024, 04/14/2024, 04/16/2023 Cholesterol Screening (Lipid Panel) 04/16/2028 04/16/2023 DTaP,Tdap,and Td Vaccines (3 - Td or Tdap) 05/01/2032 05/01/2022, 03/21/2011 Osteoporosis Screening (Bone Density Screening) 09/15/2034 09/15/2024, 08/22/2022, 04/23/2019 HIB Vaccines Aged Out No [...] Associated Diagnosis Comments COMPREHENSIVE METABOLIC PANEL Routine 10/13/2024 11:36 AM EDT Mixed hyperlipidemia Primary hypertension MG MAMMO DIGITAL SCREENING W LANETTE BILAT Routine 09/15/2024 2:32 PM EDT Encounter for screening mammogram for malignant neoplasm of breast BD BONE DENSITY DXA AXIAL SKELETON Routine 09/15/2024 2:23 PM EDT Other specified disorders of bone density and structure, multiple sites LIPID PANEL Routine 04/16/2023 from Last 3 Months or Most Recently Relevant to Health Maintenance Results * (ABNORMAL) Comprehensive metabolic panel (10/13/2024 11:36 AM EDT) [facility] Signature Sodium 139 133 - 145 mmol/L LAB CHEMISTRY METHOD 10/13/2024 4:06 PM EDT [facility] Potassium 4.4 3.5 - 5.5 mmol/L LAB CHEMISTRY METHOD 10/13/2024 4:06 PM [facility] Chloride 105 96 - 110 mmol/L LAB CHEMISTRY METHOD 10/13/2024 4:06 PM [facility] CO2 30 21 - 32 mmol/L LAB CHEMISTRY METHOD 10/13/2024 4:06 PM [facility] Anion Gap 4 3 - 11 LAB CHEMISTRY METHOD 10/13/2024 4:06 PM [facility] Glucose 108(H) 70 - 100 mg/dL LAB CHEMISTRY METHOD 10/13/2024 4:06 PM [facility] BUN 33(H) 5 - 25 mg/dL LAB CHEMISTRY METHOD 10/13/2024 4:06 PM [facility] Creatinine 1.02 0.50 - 1.10 mg/dL LAB CHEMISTRY METHOD 10/13/2024 4:06 PM [facility] eGFR 53(L) >=60 mL/min/1. 73m2 LAB CHEMISTRY METHOD 10/13/2024 4:06 PM [facility] Comment:Calculation based on the Chronic Kidney Disease Epidemiology Collaboration (CKD-EPI) equation refit without adjustment for race. BUN/Creatinine Ratio 32.4 LAB CHEMISTRY METHOD 10/13/2024 4:06 PM [facility] Calcium 10.2 8.5 - 10.5 mg/dL LAB CHEMISTRY METHOD 10/13/2024 4:06 PM [facility] AST (SGOT) 11 10 - 42 unit/L LAB CHEMISTRY METHOD 10/13/2024 4:06 PM [facility] ALT (SGPT) 19 10 - 60 unit/L LAB CHEMISTRY METHOD 10/13/2024 4:06 PM [facility] Alkaline Phosphatase 55 42 - 121 unit/L LAB CHEMISTRY METHOD 10/13/2024 4:06 PM [facility] Total Protein 7.3 6.0 - 8.0 g/dL LAB CHEMISTRY METHOD 10/13/2024 4:06 PM EDT [facility] Albumin 3.8 3.2 - 5.0 g/dL LAB CHEMISTRY METHOD 10/13/2024 4:06 PM EDT [facility] Total Bilirubin 0.6 0.0 - 1.4 mg/dL LAB CHEMISTRY METHOD 10/13/2024 4:06 PM EDT [facility] Blood Venous blood specimen / Unknown Venipuncture / Unknown 10/13/2024 11:36 AM EDT 10/13/2024 11:36 AM EDT Edison STACK LAB BLOOD ORDERABLES Fi nal Result [facility] [address] [place] [address], * MG Mammo Digital Screening w Lanette bilat (09/15/2024 2:32 PM EDT) Anatomical Region Laterality Modality Breast Bilateral Mammography 09/16/2024 7:44 AM EDT Impressions 09/16/2024 7:53 AM EDT No mammographic evidence of malignancy. No suspicious interval change. A negative mammogram in the presence of a clinically suspicious palpable abnormality does not preclude the possibility of malignancy or alter the indications for biopsy. ASSESSMENT: BI-RADS 2: BENIGN RECOMMENDATION(S): 1: Routine screening mammogram BILATERAL in 1 year. Mammography location: [facility] [address] [place], [address] -------- FINAL REPORT -------- Dictated By: Huseyin Roberts Dictated Date: 09/16/2024 07:44 ET Assigned Physician: Huseyin Roberts Reviewed and Electronically Signed By: Huseyin Roberts Signed Date: 09/16/2024 07:53 ET Workstation ID: [id number] Transcribed By: Self Edit Transcribed Date: 09/16/2024 07:44 ET Narrative 09/16/2024 7:53 AM EDT EXAM: SCREENING MAMMOGRAPHY, BILATERAL HISTORY: SCREENING. Family history of breast cancer, sister COMPARISON: 08/21/22, 12/26/20 TECHNIQUE: Synthesized CC and MLO projections of each breast. Tomosynthesis of each breast in the CC and MLO projections. ADDITIONAL IMAGING: None Computer-aided detection was employed with the [employer] SPARQCode AI 3-D. TISSUE DENSITY: The breasts are heterogeneously dense, which may obscure small masses. (BI-RADS category C) FINDINGS: RIGHT BREAST: There are multiple circumscribed varying sized round and oval masses with typically benign features. There are diffuse round calcifications. No additional suspicious right breast findings LEFT BREAST: There are multiple circumscribed small equal density oval masses with typical benign features. There are diffuse round calcifications. There is an unchanged global asymmetry in the 3 o'clock region. No additional suspicious left breast findings Procedure Note Huseyin Roberts MD - 09/16/2024 EXAM: SCREENING MAMMOGRAPHY, BILATERAL HISTORY: SCREENING. Family history of breast cancer, sister COMPARISON: 08/21/22, 12/26/20 TECHNIQUE: Synthesized CC and MLO projections of each breast.Tomosynthesis of each breast in the CC and MLO projections. ADDITIONAL IMAGING: None Computer-aided detection was employed with the [employer] AI 3-D. TISSUE DENSITY: The breasts are heterogeneously dense, which may obscuresmall masses. (BI-RADS category C) FINDINGS: RIGHT BREAST: There are multiple circumscribed varying sized round and oval masses withtypically benign features. There are diffuse round calcifications. Noadditional suspicious right breast findings LEFT BREAST: There are multiple circumscribed small equal density oval masses withtypical benign features. There are diffuse round calcifications. Thereis an unchanged global asymmetry in the 3 o'clock region. No additionalsuspicious left breast findings IMPRESSION: No mammographic evidence of malignancy. No suspicious interval change. A negative mammogram in the presence of a clinically suspicious palpableabnormality does not preclude the possibility of malignancy or alter theindications for biopsy. ASSESSMENT: BI-RADS 2: BENIGN RECOMMENDATION(S): 1: Routine screening mammogram BILATERAL in 1 year. [facility] [address], [address] -------- FINAL REPORT -------- Dictated By: Huseyin Roberts Dictated Date: 09/16/2024 07:44 ET Assigned Physician: Huseyin Roberts Reviewed and Electronically Signed By: Huseyin Roberts Signed Date: 09/16/2024 07:53 ET Workstation ID: [id number] Transcribed By: Self Edit Transcribed Date: 09/16/2024 07:44 ET Syed Luu MD IMG BI PROCEDURES Final Result * BD Bone Density DXA Axial Skeleton (09/15/2024 2:23 PM EDT) Anatomical Region Laterality Modality Wrist, Hip, L-spine Bone Densito metry 09/15/2024 3:19 PM EDT Impressions 09/15/2024 3:21 PM EDT Osteopenia. Telerad SEDA ([id number]) -------- FINAL REPORT -------- Dictated By: Jocelyne Rosen Dictated Date: 09/15/2024 15:19 ET Assigned Physician: Jocelyne Rosen Reviewed and Electronically Signed By: Jocelyne Rosen Signed Date: 09/15/2024 15:21 ET Workstation ID: [id number] Transcribed By: Self Edit Transcribed Date: 09/15/2024 15:19 ET Narrative 09/15/2024 3:21 PM EDT History: Low estrogen state due to menopause. Left hip replacement. Comparison: 08/21/22 Findings: Bone densitometry is performed utilizing dual energy x-ray absorptiometry (DXA) in the [employer] unit. The lumbar spine and right proximal femur are evaluated in the AP projection. The FRAX questionaire was completed. The results indicate low bone mass (osteopenia), with a right femoral neck T- score of -1.6. The Z score is 0.4, indicating bone mineral density within the range of normal for age. There has been no statistically significant change. The detailed DEXA report will be mailed to the referring physician's office. DualFemur FRAX: 10-year Probability of Fracture: Major Osteoporotic 11.5 percent Hip 3.3 percent. Procedure Note Jocelyne Rosen MD - 09/15/2024 History: Low estrogen state due to menopause. Left hip replacement. Comparison: 08/21/22 Findings: Bone densitometry is performed utilizing dual energy x-ray absorptiometry(DXA) in the Friday unit. The lumbar spine and right proximal femurare evaluated in the AP projection. The FRAX questionaire was completed. The results indicate low bone mass (osteopenia), with a right femoral neckT- score of -1.6. The Z score is 0.4, indicating bone mineral densitywithin the range of normal for age. There has been no statistically significant change. The detailed DEXAreport will be mailed to the referring physician's office. DualFemur FRAX: 10-year Probability of Fracture: Major Osteoporotic 11.5percent Hip 3.3 percent. IMPRESSION: Osteopenia. Telerad SEDA ([id number]) -------- FINAL REPORT -------- Dictated By: Jocelyne Rosen Dictated Date: 09/15/2024 15:19 ET Assigned Physician: Jocelyne Rosen Reviewed and Electronically Signed By: Jocelyne Rosen Signed Date: 09/15/2024 15:21 ET Workstation ID: [id number] Transcribed By: Self Edit Transcribed Date: 09/15/2024 15:19 ET Syed Luu MD IM DXA PROCEDURES Final Result * (ABNORMAL) Lipid panel (04/16/2023) LDL/HDL Ratio 3 0 - 4 Triglycerides 126 0 - 150 mg/dL Cholesterol 217(A) 0 - 200 mg/dL HDL 75 >=40 mg/dL LDL Cholesterol 117(A) 0 - 100 mg/dL Blood Venous blood specimen / Unknown Historical Provider LAB BLOOD ORDERABLES Mary maynard Result from Last 3 Months or Most Recently Relevant to Health Maintenance Insurance [employer] Care Teams Dump Grader Relationship Specialty Start Date End Date Maciel Pepe MD [address] [address] PCP - General Internal Medicine 04/14/24
--- OUTSIDE RECORDS SUMMARY | 2024-12-01 12:16 | XMS_ITS ---
Author Name [facility] Organization Unknown Care Team Organization Name Specialty Phone Email Start Date End Da te [facility] Maciel Pepe Primary Care 03/12/20222023
--- OUTSIDE RECORDS SUMMARY | 2024-12-01 12:16 | XMS_ITS | Clinical Summary ---
Author Organization [facility] Address [address] [place] [address] Care Team Providers Care Personnel Representative Name Role Phone Susan Ryan MD Primary [...] 1-dose 75+ series) 01/21/2012 Influenza Vaccine (#1) 2025 Hepatitis B Vaccines Aged Out No long er eligible based on patient's age to complete this topic RSV Ped < 20 months Aged Out No longe r eligible based on patient's age to complete this topic Care Teams Personnel Representative Relationship Specialty Start Date End Date Susan Ryan MD [address] [place] [address] PCP - General Family Medicine 12/31/16
== END 2024-12-01 11:43 | disposition home or self-care (01) ==
LOC: HO.HOS 11:13
PROVIDERS: Visit Provider Orthopaedic Surgery
DX: M17.0 Bilateral primary osteoarthritis of knee (principal)
CPT/HCPCS: 20610; 99213

== ENCOUNTER → 2024-12-01 11:12 | Outpatient (BNVA) | payer MEDICARE, SELFPAY | PROVIDERS: Visit Provider Orthopaedic Surgery | DX: M17.0 Bilateral primary osteoarthritis of knee (principal) | CPT/HCPCS: 20610; 99212; J1010; J2003 ==

== ENCOUNTER 2025-03-03 10:59 | Outpatient (AMB) | payer MEDICARE, SELFPAY ==
--- NOTE | 2025-03-03 11:05 | MHC.OFFVIS ---
Vital Signs 03/03/25 11:12 Height 5 ft 5 in Weight 192 lb BMI 31.9 Intake Visit Reasons: OV - Bilateral Knee OA - Last Inj 12/01/24 Intake Note: Tiffani is a 89 year old woman who presents with complaints of bilateral knee pains. She describes her pains as sharp in nature. She has tried Tylenol and anti-inflammatory medicines which gave her mild relief. She has had cortisone injections in the past which gave her fairly good relief. She wishes to hold off on surgery if at all possible. Allergies lavander Allergy (Severe, Uncoded 03/03/25 11:10) Hives Medication List - Last Reconciled 03/03/25 by Shayan Busch MD amlodipine 5 mg PO DAILY amoxicillin 2,000 mg (4 x 500 mg) PO ONCE estradiol 1 mg PO DAILY hydrochlorothiazide 25 mg PO DAILY losartan 100 mg PO DAILY rosuvastatin 40 mg PO DAILY [facility] Medical History (Updated 03/03/25 @ 11:11 by ENRIKE Ott) Osteoarthritis of left knee Osteoarthritis of right knee Physical Exam Const Other: Well-nourished well-developed very friendly female awake alert and oriented x3 in no acute distress Extrem Other: Bilateral knee examination shows minimal effusions, palpable crepitus with range of motion, pain with range of motion, no instability Office Procedures AMB Joint Injection/Aspiration Joint Injection/Aspiration Primary Site: left knee Prep: site was prepped using aseptic technique Injected: 40 mg of, DepoMedrol, with 4 mL of and 1% plain lidocaine Procedure: The patient tolerated the procedure well Coding 52078 - Large joint Procedure code (CPT) selection complete AMB Joint Injection/Aspiration Joint Injection/Aspiration Primary Site: right knee Prep: site was prepped using aseptic technique Injected: 40 mg of, DepoMedrol, with 4 mL of and 1% lidocaine with epinephrine 1:100,000 Procedure: The patient tolerated the procedure well Coding 26529 - Large joint Procedure code (CPT) selection complete Results Reviewed Results Reviewed: X-rays of the patient's bilateral knees taken previously show joint space narrowing, subchondral sclerosis, no acute bony abnormalities Assessment & Plan Assessment & Plan (1) Osteoarthritis of left knee: Code(s): M17.12 - Unilateral primary osteoarthritis, left knee Category: Medical (2) Osteoarthritis of right knee: Code(s): M17.11 - Unilateral primary osteoarthritis, right knee Category: Medical Plan Ms. Campbell presents with bilateral knee pains due to degenerative joint disease. The risks and benefits of bilateral knee cortisone injections were discussed at length with the patient. The patient wished to proceed. She tolerated the injections well. She will continue with her home exercise program. She will contact me prior to her follow-up appointment in 3 months should any questions or concerns arise. Feel free to call me at any time should questions regarding her orthopedic management arise. I spent 21 minutes in reviewing the patient's records and imaging studies, seeing the patient and documenting in the medical record. Orders: Orders AMB Joint Injection/Aspiration Today M17.12 - Unilateral primary osteoarthritis, left knee AMB Joint Injection/Aspiration Today M17.11 - Unilateral primary osteoarthritis, right knee Coding Level of Care Code Est Pt Level 3 (93497) Complex EM visit Add On G2211 Diagnoses Osteoarthritis of left knee M17.12 Osteoarthritis of right knee M17.11 CPT Codes Coding - 18660 Large joint: 03940 - Large joint ([id number]) Coding - 53781 Large joint: 37194 - Large joint ([id number])
[2025-03-03 11:12] VITALS: BMI 31.9
--- OUTSIDE RECORDS SUMMARY | 2025-03-03 13:45 | XMS_ITS | Clinical Summary ---
Author Organization [facility] Address [address] [place] [phone] Phone Care Team Providers Care Technical Programs Manager Name Role Phone Maciel Pepe MD Primary Care Provider Allergies Active Allergy [...] Take 1 Capsule by mouth daily. Active amLODIPine (NORVASC) 5 mg tablet Take 1 tablet (5 mg total) by mouth 1 (one) time each day. 90 tablet 1 5 Active hydroCHLOROthiazide (HYDRODIURIL) 25 mg tablet Take 1 tablet (25 mg total) by mouth 1 (one) time each day. 90 tablet 1 5 Active losartan (COZAAR) 100 mg tablet Take 1 tablet (100 mg total) by mouth 1 (one) time each day. 90 tablet 1 5 Active oxyBUTYnin (DITROPAN) 5 mg tablet Take 1 tablet by mouth once daily 90 tablet 1 5 Active rosuvastatin (CRESTOR) 40 mg tabletIndications:M ixed hyperlipidemia Take 1 tablet by mouth once daily 90 tablet 1 5 Active acetaminophen (TYLENOL 8 HOUR) 650 mg 8 hr tablet TAKE 2 TABLETS BY MOUTH EVERY 8 HOURS NEEDED FOR MILD PAIN * DO NOT CRUSH,CHEW, OR SPLIT* 90 tablet 5 Active Active Problems Problem Noted Date [...] how their size, shape, and change/lack of supervisor policy change clerks time affect her level of suspicion for [...] me after that. All questions were answered. Assessment & Plan (01/11/2025 9:32 AM EDT): Ms. Campbell is a 89 y.o. 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 The patient's most recent surveillance chest CT scan done January 06, 2025 shows similar appearance from the chest CT scan done 1 year prior, accounting for for differences in technique. in the right upper lobe nodule of concern measuring 1.03 cm, as well as stability in the mediastinal cyst. There may be a slight change as when compared to her original scan obtained in September 2022, again accounting for differences in technique. There are no new or growing nodules. We also re-discussed pulmonary nodules in general and how their size, shape, and change/lack of supervisor policy change clerks time affect the level of suspicion for malignancy. There continues to be a moderate level of suspicion based on all of this and the options were discussed with her were of continued observation versus needle biopsy versus surgical wedge resection possible segmentectomy. Understanding the risks of this she wants to proceed with continued observation. Her next chest CT will be done in one year, January 2026. She will be seen in the office after the scan to go over the results and perform a physical exam. Patient is instructed to call as needed with any questions or concerns prior to this appointment. Ectatic aorta (CMS/HCC V24) 08/07/2022 Overview (03/10/2024): [...] Encounters Date Type Department Care Team Description 02/07/2025 Telephone Internal Medicine - [facility] [address] [place] [phone] Maciel Pepe MD 01/11/2025 9:30 AM EDT Office Visit Thoracic Surgery - [place] [address] [facility] [address] [place] [phone] Deana Cantu NP Pulmonary nodules/lesions, multiple (Primary Dx) 01/06/2025 8:48 AM EDT - 01/06/2025 11:59 PM EDT Hospital Encounter [facility] CT Scan [address] [place] [phone] Pulmonary nodules/lesions, multiple; Mediastinal cyst, congenital Discharge Disposition: Home or Self Care 12/14/2024 Telephone [facility] - [facility] [address] [place] [phone] Cira Storm MA from Last 3 Months Immunizations Immunization Administration Dates Next Due Tdap Tetanus diptheria acell ular pertussis (Boostrix; Adacel) 7yo and older 05/01/2022,03/21/2011 Surgical History Surgery Date Site/Laterality Comments HYSTERECTOMY PROCEDURE: HISTORICAL HYSTERECTOMY CATARACT EXTRACTION PROCEDURE: HISTORICAL CATARACT REMOVAL HIP ARTHROPLASTY PROCEDURE: HISTORICAL HIP REPLACEMENT OTHER SURGICAL HISTORY PROCEDURE: HISTORY OTHER; COMMENT: Abdomino-vaginal vesical neck suspension FOOT SURGERY PROCEDURE: [place] UNLISTED PROCEDURE FOOT/TOES; COMMENT: hammartoe repair Medical [...] Sign Reading Time Taken Comments Blood Pressure 149/71 01/11/2025 9:17 AM EDT Pulse 78 01/11/2025 9:17 AM EDT Temperature 36.6 C (97.9 F) 01/11/2025 9:17 AM EDT Respiratory Rate 14 01/11/2025 9:17 AM EDT Oxygen Saturation 95% 01/11/2025 9:17 AM EDT Inhaled Oxygen Concentration - - Weight 86.4 kg (190 lb 6.4 oz) 01/11/2025 9:17 A M EDT Height 160 cm (5' 3 ) 01/11/2025 9:17 AM EDT Body Mass Index 33.73 01/11/2025 9:17 AM EDT Plan of Treatment Upcoming Encounters Date Type Department Care Team (Late st Contact Info) Description 04/14/2025 11:00 AM EST [facility] [address] [place] [phone] Edison Escobedo PA [address] [place] [address] Health Maintenance Due Date Last Done Comments Pneumococcal Vaccine: 50+ Years (1 of 1 - PCV) 1987 Zoster Vaccines (1 of 2) 1987 RSV Immunization Adult Patients (1 - 1-dose 75+ series) 01/21/2012 Falls Risk Assessment 04/13/2022 Medicare Annual Wellness Visit 04/13/2022 Social Influencers of Health Screening 04/13/2022 Depression Screening 05/05/2024 COVID-19 Vaccine (4 - 2024-2 6 season) 2025 05/23/2021, 09/26/2020, 08/29/2020 Influenza Vaccine (#1) 2025 Hypertension/CHF/CAD Annual BMP [...] Procedure Name Priority Date/Time Associated Diagnosis Comments CT CHEST WO CONTRAST Routine 01/06/2025 9:09 AM EDT Pulmonary nodules/lesions, multiple Mediastinal cyst, congenital COMPREHENSIVE METABOLIC PANEL Routine 10/13/2024 11:36 AM EDT Mixed hyperlipidemia Primary hypertension BD BONE DENSITY DXA AXIAL SKELETON Routine 09/15/2024 2:23 PM EDT Other specified disorders of bone density and structure, multiple sites LIPID PANEL Routine 04/16/2023 from Last 3 Months or Most Recently Relevant to Health Maintenance Results * CT Chest wo Contrast (01/06/2025 9:09 AM EDT) Anatomical Region Laterality Modality Body Computed Tomogra phy 01/07/2025 12:0 4 PM EDT Impressions 01/07/2025 12:40 PM EDT Similar appearance of lung opacities and pulmonary nodules. Continued surveillance advised. -------- FINAL REPORT -------- Dictated By: Adeola Shirley Dictated Date: 01/07/2025 12:04 ET Assigned Physician: Adeola Shirley Reviewed and Electronically Signed By: Adeola Shirley Signed Date: 01/07/2025 12:40 ET Workstation ID: [id number] Transcribed By: Self Edit Transcribed Date: 01/07/2025 12:15 ET Narrative 01/07/2025 12:40 PM EDT PROCEDURE: CT CHEST WITHOUT CONTRAST INDICATION: pulmonary nodules, mediastinal cyst TECHNIQUE: Chest CT without contrast. Multi planar reformats were created and interpreted. The examination was performed utilizing dose reduction techniques.Total DLP 175 mGy/cm COMPARISON: 01/21/2024 FINDINGS: LUNGS/PLEURA: Again noted is a nodule in the anterior right upper lobe which measures 1.03 cm. This appears similar accounting for differences in technique. Peripheral opacity/scarring in the right lung base. Improved peripheral left lower lobe opacity. Stable opacity in the left upper lobe along the fissure. There are no new or growing nodules. Emphysematous changes. MEDIASTINUM: Dense coronary calcifications and aortic valvular calcifications. There are also atherosclerotic calcifications of the aorta without aneurysm. Stable large duplication cyst. CHEST WALL: No axillary lymphadenopathy or superficial hematoma. UPPER ABDOMEN:The visualized portions of the upper abdomen are unremarkable. BONES: No acute fracture. Scattered degenerative changes seen throughout the bones. Scoliosis. Procedure Note Adeola Shirley MD - 01/07/2025 PROCEDURE: CT CHEST WITHOUT CONTRAST INDICATION: pulmonary nodules, mediastinal cyst TECHNIQUE: Chest CT without contrast. Multi planar reformats were createdand interpreted. The examination was performed utilizing dose reductiontechniques.Total DLP 175 mGy/cm COMPARISON: 01/21/2024 FINDINGS: LUNGS/PLEURA: Again noted is a nodule in the anterior right upper lobewhich measures 1.03 cm. This appears similar accounting for differencesin technique. Peripheral opacity/scarring in the right lung base.Improved peripheral left lower lobe opacity. Stable opacity in the leftupper lobe along the fissure. There are no new or growing nodules.Emphysematous changes. MEDIASTINUM: Dense coronary calcifications and aortic valvularcalcifications. There are also atherosclerotic calcifications of theaorta without aneurysm. Stable large duplication cyst. CHEST WALL: No axillary lymphadenopathy or superficial hematoma. UPPER ABDOMEN:The visualized portions of the upper abdomen areunremarkable. BONES: No acute fracture. Scattered degenerative changes seen throughoutthe bones. Scoliosis. IMPRESSION: Similar appearance of lung opacities and pulmonary nodules. Continuedsurveillance advised. -------- FINAL REPORT -------- Dictated By: Adeola hSirley Dictated Date: 01/07/2025 12:04 ET Assigned Physician: Adeola Shirley Reviewed and Electronically Signed By: Adeola Shirley Signed Date: 01/07/2025 12:40 ET Workstation ID: [id number] Transcribed By: Self Edit Transcribed Date: 01/07/2025 12:15 ET Missy STACK [facility] CT PROCEDURES Final Resul t * (ABNORMAL) Comprehensive metabolic panel (10/13/2024 11:36 AM EDT) Sodium 139 133 - 145 mmol/L LAB CHEMISTRY METHOD 10/13/2024 4:06 PM EDT [facility] Potassium 4.4 3.5 - 5.5 mmol/L LAB CHEMISTRY METHOD 10/13/2024 4:06 PM [facility] Chloride 105 96 - 110 mmol/L LAB CHEMISTRY METHOD 10/13/2024 4:06 PM [facility] CO2 30 21 - 32 mmol/L LAB CHEMISTRY METHOD 10/13/2024 4:06 PM [facility] Anion Gap 4 3 - 11 LAB CHEMISTRY METHOD 10/13/2024 4:06 PM [facility] Glucose 108(H) 70 - 100 mg/dL LAB CHEMISTRY METHOD 10/13/2024 4:06 PM [facility] BUN 33(H) 5 - 25 mg/dL LAB CHEMISTRY METHOD 10/13/2024 4:06 PM [facility] Creatinine 1.02 0.50 - 1.10 mg/dL LAB CHEMISTRY METHOD 10/13/2024 4:06 PM [facility] eGFR 53(L) >=60 mL/min/1. 73m2 LAB CHEMISTRY METHOD 10/13/2024 4:06 PM [facility] Comment:Calculation based on the Chronic Kidney Disease Epidemiology Collaboration (CKD-EPI) equation refit without adjustment for race. BUN/Creatinine Ratio 32.4 LAB CHEMISTRY METHOD 10/13/2024 4:06 PM [facility] Calcium 10.2 8.5 - 10.5 mg/dL LAB CHEMISTRY METHOD 10/13/2024 4:06 PM [facility] AST (SGOT) 11 10 - 42 unit/L LAB CHEMISTRY METHOD 10/13/2024 4:06 PM [facility] ALT (SGPT) 19 10 - 60 unit/L LAB CHEMISTRY METHOD 10/13/2024 4:06 PM [facility] Alkaline Phosphatase 55 42 - 121 unit/L LAB CHEMISTRY METHOD 10/13/2024 4:06 PM [facility] Total Protein 7.3 6.0 - 8.0 g/dL LAB CHEMISTRY METHOD 10/13/2024 4:06 PM EDT [facility] Albumin 3.8 3.2 - 5.0 g/dL LAB CHEMISTRY METHOD 10/13/2024 4:06 PM EDT [facility] Total Bilirubin 0.6 0.0 - 1.4 mg/dL LAB CHEMISTRY METHOD 10/13/2024 4:06 PM EDT [facility] Blood Venous blood specimen / Unknown Venipuncture / Unknown 10/13/2024 11:36 AM EDT 10/13/2024 11:36 AM EDT Edison STACK LAB BLOOD ORDERABLES Fi nal Result [facility] [address] [place] [address], * BD Bone Density DXA Axial Skeleton (09/15/2024 2:23 PM EDT) Anatomical Region Laterality Modality Wrist, Hip, L-spine Bone Densito metry 09/15/2024 3:19 PM EDT Impressions 09/15/2024 3:21 PM EDT Osteopenia. [employer] STACK ([id number]) -------- FINAL REPORT -------- Dictated By: Jocelyne Rosen Dictated Date: 09/15/2024 15:19 ET Assigned Physician: Jocelyne Rosen Reviewed and Electronically Signed By: Jocelyne Rosen Signed Date: 09/15/2024 15:21 ET Workstation ID: [id number] Transcribed By: Self Edit Transcribed Date: 09/15/2024 15:19 ET Narrative 09/15/2024 3:21 PM EDT History: Low estrogen state due to menopause. Left hip replacement. Comparison: 08/21/22 Findings: Bone densitometry is performed utilizing dual energy x-ray absorptiometry (DXA) in the [place] unit. The lumbar spine and right proximal [...] utilizing dual energy x-ray absorptiometry(DXA) in the [place] unit. The lumbar spine and right proximal [...] Hip 3.3 percent. IMPRESSION: Osteopenia. [employer] SEDA ([id number]) -------- FINAL REPORT -------- Dictated By: Jocelyne Rosen Dictated Date: 09/15/2024 15:19 ET Assigned Physician: Jocelyne Rosen Reviewed and Electronically Signed By: Jocelyne Rosen Signed Date: 09/15/2024 15:21 ET Workstation ID: [id number] Transcribed By: Self Edit Transcribed Date: 09/15/2024 15:19 ET Syed Luu MD [facility] DXA PROCEDURES Final Result * (ABNORMAL) Lipid panel (04/16/2023) LDL/HDL Ratio 3 0 - 4 Triglycerides 126 0 - 150 mg/dL Cholesterol 217(A) 0 - 200 mg/dL HDL 75 >=40 mg/dL LDL Cholesterol 117(A) 0 - 100 mg/dL Blood Venous blood specimen / Unknown us Historical Provider LAB BLOOD ORDERABLES Mary l Result from Last 3 Months or Most Recently Relevant to Health Maintenance Insurance [employer] [place] [id number] [employer] Care Teams Technical Programs Manager Relationship Specialty Start Date End Date Maciel Pepe MD [address] [facility] [place] [address] PCP - General Internal Medicine 04/14/24
--- OUTSIDE RECORDS SUMMARY | 2025-03-03 13:45 | XMS_ITS | Clinical Summary ---
Author Organization [facility] Address [address] [place] [address] Care Team Providers Care Principal Examiner Name Role Phone Susan Ryan MD Primary [...] age to complete this topic Care Teams Principal Examiner Relationship Specialty Start Date End Date Susan Ryan MD [address] [place] [phone] PCP - General Family Medicine 12/31/16
== END 2025-03-03 11:31 | disposition home or self-care (01) ==
LOC: HO.HOS 10:59
PROVIDERS: Visit Provider Orthopaedic Surgery
DX: M17.0 Bilateral primary osteoarthritis of knee (principal)
CPT/HCPCS: 20610

== ENCOUNTER → 2025-03-03 10:59 | Outpatient (BNVA) | payer MEDICARE, SELFPAY | PROVIDERS: Visit Provider Orthopaedic Surgery | DX: M17.0 Bilateral primary osteoarthritis of knee (principal) | CPT/HCPCS: 20610; J1010; J2003 ==